=== PATIENT | female | born 1980 | race American Indian/Alaskan Native ===

== ENCOUNTER 2017-02-16 13:29 | Inpatient (IN) | payer MEDICAID, OTHER ==
[2017-02-16 14:38] LABS: Basophils % (Auto) 0.6 % (0.0-1.8); Eosinophils % (Auto) 0.7 % (0.0-4.3); Mean Corpuscular HGB Conc 28 % (30-34); Red Cell Distribution Width 19.8 % (13.2-15.2); White Blood Count 14.4 K/mm3 (4.5-11.0)
[2017-02-16 14:42] LABS: Hematocrit 24.6 % (30.3-42.9); Hemoglobin 6.9 gm/dl (10.1-14.3); Mean Corpuscular Hemoglobin 16 pg (28-32); Mean Corpuscular Volume 57 fl (79-97)
[2017-02-16 14:56] LABS: Anion Gap 15 mmol/L; Blood Urea Nitrogen 6 mg/dL (7-17); Carbon Dioxide 25 mmol/L (22-30); Chloride 97.4 mmol/L (98-107); Glucose 113 mg/dL (65-100); Potassium 3.7 mmol/L (3.6-5.0); Sodium 134 mmol/L (137-145)
[2017-02-16 16:44] LABS: Platelet Count 254 K/mm3 (140-440)
[2017-02-16] MEDS ORDERED: ALUM-MAG HYDROX-SIMETH 200-200-20MG/5ML PO ONE (21:37)
[2017-02-16] MEDS ORDERED: PEPCID IV ONE (21:37)
[2017-02-16] MEDS ORDERED: CARAFATE PO ONE (21:37)
[2017-02-16] MEDS ORDERED: NACL 0.9% 500 ML 500 ML IV ONE (21:37)
--- NOTE | 2017-02-16 21:38 | Emergency Department Report ---
ED General Adult HPI - General Chief complaint: Chest Pain Stated complaint: CHEST PAIN Time Seen by Provider: 02/16/17 21:14 Source: patient, RN notes reviewed, old records reviewed Mode of arrival: Ambulatory Limitations: No Limitations - History of Present Illness Initial comments: This is a 36-year-old female. She is previously unknown to me. Past medical history includes erosive gastritis, fibroids, anemia. She does not have a primary care doctor. LMP2 weeks ago. She indicates that she is not . Patient presents to the ER complaining of chest pain. The chest pain is central. It does not radiate to the back, arms or neck. It is intermittent for a week. There is no leg pain. There is no leg swelling. No recent trips greater than 4 hours. No recent hospital admissions. No cocaine use. No oral contraceptive use. No hematemesis. No bright red blood per rectum. Reports heavy menstruation. The puncture symptoms today are similar to prior episodes of symptomatic anemia. Patient was found to have symptomatically anemia in the ER, with a hemoglobin/ hematocrit of 6. 9/24. The patient indicates she is amenable to packed red blood cell transfusion. Medications was presented to the Hospital physician, Dr. Neal, who graciously accepted the patient to his service for treatment of symptomatic anemia. -: Gradual Location: chest Quality: aching Consistency: intermittent Improves with: rest Worsens with: movement Associated Symptoms: chest pain, shortness of breath - Related Data Home Medications Medication Instructions Recorded Confirmed Last Taken Ferrous Gluconate [Fergon 325 MG 325 mg PO QDAY 02/16/17 02/16/17 02/09/17 tab] One Daily Multivitamin Tablet 1 tab PO QDAY 02/16/17 02/16/17 02/13/17 Allergies Allergy/AdvReac Type Severity Reaction Status Date / Time No Known Allergies Allergy Unverified 07/11/15 17:26 ED Review of Systems ROS: Stated complaint: CHEST PAIN Other details as noted in HPI ED Past Medical Hx - Past Medical History Previous Medical History?: Yes Hx Congestive Heart Failure: No Hx Diabetes: No Hx Headaches / Migraines: Yes Hx Asthma: No Hx COPD: No Additional medical history: anemia, last bld transfusion 2015 - Surgical History Past Surgical History?: Yes Additional Surgical History: Bilateral tubal ligation - Social History Smoking Status: Current Every Day Smoker Substance Use Type: None - Medications Home Medications: Home Medications Medication Instructions Recorded Confirmed Last Taken Type Ferrous Gluconate [Fergon 325 MG 325 mg PO QDAY 02/16/17 02/16/17 02/09/17 History tab] One Daily Multivitamin Tablet 1 tab PO QDAY 02/16/17 02/16/17 02/13/17 History ED Physical Exam - General Limitations: No Limitations General appearance: alert, in no apparent distress - Head Head exam: Present: atraumatic, normocephalic - Eye Eye exam: Present: normal appearance, EOMI. Absent: nystagmus - ENT ENT exam: Present: normal exam, normal orophraynx, mucous membranes moist, normal external ear exam - Neck Neck exam: Present: normal inspection, full ROM. Absent: tenderness, meningismus - Respiratory Respiratory exam: Present: normal lung sounds bilaterally. Absent: respiratory distress, wheezes, rales, rhonchi, stridor, chest wall tenderness, accessory muscle use, decreased breath sounds, prolonged expiratory - Cardiovascular Cardiovascular Exam: Present: regular rate, normal rhythm, normal heart sounds. Absent: bradycardia, tachycardia, irregular rhythm, systolic murmur, diastolic murmur, rubs, gallop - GI/Abdominal GI/Abdominal exam: Present: soft, normal bowel sounds. Absent: distended, tenderness, guarding, rebound, rigid, pulsatile mass - Extremities Exam Extremities exam: Present: normal inspection, full ROM, normal capillary refill. Absent: tenderness, pedal edema, joint swelling, calf tenderness - Back Exam Back exam: Present: normal inspection, full ROM. Absent: tenderness, CVA tenderness (R), CVA tenderness (L), muscle spasm, paraspinal tenderness, vertebral tenderness - Neurological Exam Neurological exam: Present: alert, oriented X3, normal gait, other (Extraocular movements intact. Tongue midline. No facial droop. Facial sensation intact to light touch in the V1, V2, V3 distribution bilaterally. 5 and 5 strength in 4 extremities.. Sensation is intact to light touch in 4 extremities.). Absent : motor sensory deficit - Psychiatric Psychiatric exam: Present: normal affect, normal mood - Skin Skin exam: Present: warm, dry, intact, normal color. Absent: rash ED Course Vital Signs 02/16/17 02/16/17 02/16/17 13:49 21:03 21:05 Temperature 98.4 F Pulse Rate 94 H 95 H Respiratory 18 17 Rate Blood Pressure 121/64 119/77 O2 Sat by Pulse 100 100 99 Oximetry 02/16/17 02/16/17 02/16/17 21:11 21:15 21:21 Temperature Pulse Rate 93 H 94 H 94 H Respiratory 22 22 21 Rate Blood Pressure 119/77 138/70 138/70 O2 Sat by Pulse 100 100 100 Oximetry 02/16/17 02/16/17 02/16/17 21:25 21:30 21:41 Temperature Pulse Rate 92 H 90 95 H Respiratory 19 18 15 Rate Blood Pressure 138/70 138/70 138/70 O2 Sat by Pulse 100 100 100 Oximetry 02/16/17 02/16/17 21:45 21:53 Temperature Pulse Rate 92 H 91 H Respiratory 20 Rate Blood Pressure 131/86 O2 Sat by Pulse 100 Oximetry - Reevaluation(s) Reevaluation #1: 02/16/17 22:06 differential diagnosis: GERD, gastritis, reflux, symptomatic anemia, acute coronary syndrome, pneumonia Assessment and plan: 36-year-old female with well-documented history of symptomatic anemia, with probable symptomatically anemia and chest pain. Low risk by KATJA score, low risk by heart score, low risk by well's criteria, no pulmonary embolus or DVT risk factors, perc negative. The patient requires packed red blood cell transfusion. She will be treated empirically for GERD/reflux. ED Medical Decision Making - Lab Data Result diagrams: 02/16/17 14:06 02/16/17 14:06 Vital Signs 02/16/17 02/16/17 02/16/17 13:49 21:03 21:05 Temperature 98.4 F Pulse Rate 94 H 95 H Respiratory 18 17 Rate Blood Pressure 121/64 119/77 O2 Sat by Pulse 100 100 99 Oximetry 02/16/17 02/16/17 02/16/17 21:11 21:15 21:21 Temperature Pulse Rate 93 H 94 H 94 H Respiratory 22 22 21 Rate Blood Pressure 119/77 138/70 138/70 O2 Sat by Pulse 100 100 100 Oximetry 02/16/17 02/16/17 02/16/17 21:25 21:30 21:41 Temperature Pulse Rate 92 H 90 95 H Respiratory 19 18 15 Rate Blood Pressure 138/70 138/70 138/70 O2 Sat by Pulse 100 100 100 Oximetry 02/16/17 02/16/17 21:45 21:53 Temperature Pulse Rate 92 H 91 H Respiratory 20 Rate Blood Pressure 131/86 O2 Sat by Pulse 100 Oximetry Lab Results 02/16/17 02/16/17 02/16/17 Range/Units 14:06 14:06 16:42 WBC 14.4 H (4.5-11.0) K/mm3 RBC 4.30 (3.65-5.03) M/mm3 Hgb 6.9 L (10.1-14.3) gm/dl Hct 24.6 L (30.3-42.9) % MCV 57 L (79-97) fl MCH 16 L (28-32) pg MCHC 28 L (30-34) % RDW 19.8 H (13.2-15.2) % Plt Count 254 (140-440) K/mm3 Lymph % (Auto) 9.5 L (13.4-35.0) % [place] % (Auto) 8.6 H (0.0-7.3) % Eos % (Auto) 0.7 (0.0-4.3) % Baso % (Auto) 0.6 (0.0-1.8) % Lymph # 1.4 (1.2-5.4) K/mm3 [place] # 1.2 H (0.0-0.8) K/mm3 Eos # 0.1 (0.0-0.4) K/mm3 Baso # 0.1 (0.0-0.1) K/mm3 Seg Neutrophils % 80.6 H (40.0-70.0) % Seg Neutrophils # 11.6 H (1.8-7.7) K/mm3 Sodium 134 L (137-145) mmol/L Potassium 3.7 (3.6-5.0) mmol/L Chloride 97.4 L (98-107) mmol/L Carbon Dioxide 25 (22-30) mmol/L Anion Gap 15 mmol/L BUN 6 L (7-17) mg/dL Creatinine 0.6 L (0.7-1.2) mg/dL Estimated GFR > 60 ml/min BUN/Creatinine Ratio 10.00 % Glucose 113 H (65-100) mg/dL Calcium 9.0 (8.4-10.2) mg/dL Troponin T < 0.010 < 0.010 (0.00-0.029) ng/mL 02/16/17 Range/Units 19:53 WBC (4.5-11.0) K/mm3 RBC (3.65-5.03) M/mm3 Hgb (10.1-14.3) gm/dl Hct (30.3-42.9) % MCV (79-97) fl MCH (28-32) pg MCHC (30-34) % RDW (13.2-15.2) % Plt Count (140-440) K/mm3 Lymph % (Auto) (13.4-35.0) % [place] % (Auto) (0.0-7.3) % Eos % (Auto) (0.0-4.3) % Baso % (Auto) (0.0-1.8) % Lymph # (1.2-5.4) K/mm3 [place] # (0.0-0.8) K/mm3 Eos # (0.0-0.4) K/mm3 Baso # (0.0-0.1) K/mm3 Seg Neutrophils % (40.0-70.0) % Seg Neutrophils # (1.8-7.7) K/mm3 Sodium (137-145) mmol/L Potassium (3.6-5.0) mmol/L Chloride (98-107) mmol/L Carbon Dioxide (22-30) mmol/L Anion Gap mmol/L BUN (7-17) mg/dL Creatinine (0.7-1.2) mg/dL Estimated GFR ml/min BUN/Creatinine Ratio % Glucose (65-100) mg/dL Calcium (8.4-10.2) mg/dL Troponin T < 0.010 (0.00-0.029) ng/mL - EKG Data -: EKG Interpreted by [facility] EKG shows normal: sinus rhythm, axis, intervals, QRS complexes, ST-T waves Rate: normal - EKG Data When compared to previous EKG there are: no significant change - Radiology Data Radiology results: pending Critical Care Time: Yes Critical care time in (mins) excluding proc time.: 35 Critical care attestation.: If time is entered above; I have spent that time in minutes in the direct care of this critically ill patient, excluding procedure time. Critical Care Time: Critical care time includes multiple bedside evaluations, interpretation of laboratory studies, radiology studies, time spent managing a patient with symptomatic anemia, chest pain, shortness of breath, requiring packed red blood cell transfusion. This includes time spent discussing patient's care with consulting services, including hospital medicine. This does not include procedure time. ED Disposition Clinical Impression: Symptomatic anemia, Chest pain Disposition: OP ADMITTED IP TO THIS HOSP Is pt being admited?: Yes Condition: Good Instructions: Chest Pain (ED) Referrals: PRIMARY CARE,MD [Primary Care Provider] - 3-5 Days
[2017-02-17] MEDS ORDERED: TYLENOL PO PRN (00:17)
[2017-02-17] MEDS ORDERED: ZOFRAN IV PRN (00:17)
--- NOTE | 2017-02-17 00:24 | History and Physical Report ---
History of Present Illness Date of examination: 02/16/17 Date of admission: 02/16/17 22:08 Chief complaint: Chest pain History of present illness: Patient is 36-year-old woman with a history of iron deficiency anemia due to fibroids in the process of being evaluated by [facility] for hysterectomy. She also has a history of tobacco dependency and erosive gastritis/GERD from [employer] who presents with 2 weeks history of substernal dull to sharp mildly intense substernal worsening nonradiating chest pain that comes and goes lasting less than 5 minutes without any aggravating or relieving factors. Patient has been taking ibuprofen almost on a daily basis. Education done. Past History Past Medical History: other (as hpi) Past Surgical History: Other (tubal ligation) Social history: smoking (I advised to stop), full code. denies: alcohol abuse, prescription drug abuse, IV drug use Family history: diabetes (mother), hypertension (mother) Medications and Allergies Allergies Allergy/AdvReac Type Severity Reaction Status Date / Time No Known Allergies Allergy Unverified 07/11/15 17:26 Home Medications Medication Instructions Recorded Confirmed Last Taken Type Ferrous Gluconate [Fergon 325 MG 325 mg PO QDAY 02/16/17 02/16/17 02/09/17 History tab] One Daily Multivitamin Tablet 1 tab PO QDAY 02/16/17 02/16/17 02/13/17 History Active Meds: Active Medications Acetaminophen (Tylenol) 650 mg PO Q6H PRN PRN Reason: Non Cardiac Pain or Temp>100.5 Ferrous Gluconate (Fergon) 325 mg PO QDAY [place] Ondansetron HCl (Zofran) 4 mg IV Q4H PRN PRN Reason: Nausea And Vomiting Pantoprazole Sodium (Protonix) 40 mg PO QDAY [facility] Review of Systems All systems: negative (as HPI and all other ROS reviewed and negative.) Exam - Physical Exam Narrative exam: GEN: WDWN, NAD, AWAKE, ALERT, ORIENTATED3 HEENT: NCAT, PERRL, EOMI, OP CLEAR NECK: SUPPLE, NO THYROMEGALY, NO JVD, NO LAD CVS: RRR, NORMAL S1S2 LUNGS/CHEST: CTA B, NORMAL CHEST EXPANSION B, GOOD AIR ENTRY B ABD: SOFT NTND, GBS, NO REBOUND OR GUARDING EXT/SKIN: NO SIGNIFICANT EDEMA OR RASH MSK: FROM X 4 EXTREMITIES NEURO: CN 2-12 GROSSLY INTACT, NO FOCAL DEFICITS PSY: CALM - Constitutional Vitals: Temp Pulse Resp BP Pulse Ox 99.2 F 93 H 18 122/77 99 02/16/17 23:03 02/16/17 23:03 02/16/17 23:03 02/16/17 23:50 02/16/17 23:50 Results - Labs CBC & Chem 7: 02/16/17 14:06 02/16/17 14:06 - Imaging and Cardiology EKG: image reviewed Assessment and Plan Patient is 36-year-old woman with a history of iron deficiency anemia due to fibroids in the process of being evaluated by [facility] for hysterectomy. She also has a history of tobacco dependency and erosive gastritis/GERD from [employer] who presents with 2 weeks history of substernal dull to sharp mildly intense substernal worsening nonradiating chest pain that comes and goes lasting less than 5 minutes without any aggravating or relieving factors. Patient has been taking ibuprofen almost on a daily basis. Education done. -Chest pain was likely due to worsening anemia: risk stratification with stress test, Treat with PPI and advise against taking ibuprofen -Acute on chronic blood loss anemia requiring transfusion: Closely monitor H&H -GERD: Treat with PPI and education done -Tobacco dependency: Counseling to stop done -DVT prophylaxis: SCD only due to anemia -Sirs without source of infection so far, cxr pending.
[2017-02-17] MEDS ORDERED: NACL 0.9% 500 ML 500 ML IV ONE (00:37)
[2017-02-17 06:44] LABS: Hematocrit 26.7 % (30.3-42.9); Hemoglobin 8.2 gm/dl (10.1-14.3)
[2017-02-17] MEDS ORDERED: LEXISCAN IV ONE ×2 (07:47→07:59)
--- NOTE | 2017-02-17 09:21 | XRay Report ---
AP CHEST: HISTORY: chest pain AP view of the chest demonstrates a normal mediastinal and cardiac contour with clear lungs and normal bony and soft tissue structures. IMPRESSION: Unremarkable AP chest.
[2017-02-17] MEDS ORDERED: PROTONIX PO SCH (10:00)
[2017-02-17] MEDS ORDERED: FERGON PO SCH (10:00)
--- NOTE | 2017-02-17 10:47 | Discharge Summary ---
Providers - Providers Date of Admission: 02/16/17 22:08 Date of discharge: 02/17/17 Attending physician: LYDIA DELGADO Primary care physician: ANUSHA ROBLES MD Hospitalization Condition: Good Disposition: DISCHARGED TO HOME OR SELFCARE - Discharge Diagnoses (1) GERD without esophagitis Status: Acute (2) Chest pain Status: Acute Qualifiers: Chest pain type: C Ischemic chest pain type: I (3) Heavy periods Status: Chronic Qualifiers: Menorrahagia type: with regular cycle Qualified Code(s): N92.0 - Excessive and frequent menstruation with regular cycle Core Measure Documentation - Palliative Care Palliative Care/ Comfort Measures: Not Applicable Exam - Constitutional Vitals: Temp Pulse Resp BP Pulse Ox 98.2 F 78 16 106/53 98 02/17/17 08:28 02/17/17 08:28 02/17/17 08:28 02/17/17 08:28 02/17/17 08:28 Plan Activity: no restrictions Diet: low fat, low cholesterol Follow up with: PRIMARY CARE, [Primary Care Provider] - 3-5 Days Prescriptions: Famotidine [Pepcid] 20 mg PO BID #30 tablet
--- NOTE | 2017-02-17 11:05 | Event Note ---
Date: 02/17/17 Nuclear stress test completed. No complications. Stress test shows small inferior wall defect, likely secondary to diaphragmatic attenuation. No ischemia. Low risk for signficant coronary artery disease. EF 67%.
[2017-02-17 12:10] VITALS: BP 142/81
--- NOTE | 2017-02-19 03:52 | Treadmill Report ---
THALLIUM STRESS TEST LEFT VENTRICLE: Left ventricle is at the upper limits of normal in size. There is a small fixed apical defect, no reversibility on the rest of study. Gated analysis demonstrates normal left ventricular systolic function with ejection fraction 67%. CONCLUSION: Small fixed apical defect may be consistent with normal apical thinning. There is no reversible ischemia demonstrated on this study. Clinical correlation is recommended. JOB# [id number] BERT/NTS
== END 2017-02-17 14:08 | disposition home or self-care (01) | DRG 760 ==
LOC: ED 13:29 → 4A 22:08
PROVIDERS: ADMIT Internal Medicine; ATTEND Internal Medicine
PROC: 30233N1 Transfusion of Nonautologous Red Blood Cells into Peripheral Vein, Percutaneous Approach (ICD-10-PCS; principal; 2017-02-16)
DX: D25.9 Leiomyoma of uterus, unspecified (principal); D62 Acute posthemorrhagic anemia; K21.9 Gastro-esophageal reflux disease without esophagitis; N92.0 Excessive and frequent menstruation with regular cycle; F17.200 Nicotine dependence, unspecified, uncomplicated; G43.909 Migraine, unspecified, not intractable, without status migrainosus; Z98.51 Tubal ligation status; Z83.3 Family history of diabetes mellitus; Z82.49 Family history of ischemic heart disease and other diseases of the circulatory system; Z71.6 Tobacco abuse counseling
CPT/HCPCS: 36415; 71010; 78452; 80048; 84484; 84702; 85014; 85018; 85025; 86850; 86900; 86901; 86920; 93005; 93010; 93017; 96374; A9502; J2785; J7040; P9016

== ENCOUNTER 2020-05-12 20:19 | Emergency (ER) | payer BC, MEDICAID ==
[2020-05-13] MEDS ORDERED: ACETAMINOPHEN 500 MG TAB PO ONE (00:53)
[2020-05-13] MEDS ORDERED: FAMOTIDINE 20 MG TAB PO ONE (00:54)
[2020-05-13] MEDS ORDERED: FAMOTIDINE 20 MG TAB ONE (00:55)
[2020-05-13] MEDS ORDERED: ACETAMINOPHEN 500 MG TAB ONE (00:55)
[2020-05-13 00:56] VITALS: BP 147/80
--- NOTE | 2020-05-13 01:04 | Emergency Department Report ---
ED General Adult HPI - General Chief complaint: Skin Rash Stated complaint: RASH Source: patient Mode of arrival: Ambulatory Limitations: No Limitations - History of Present Illness Initial comments: Patient is a 39-year-old -[place] female with no past medical history presents to the ED with complaint of acute onset persistent intermittent diffuse itchy erythematous maculopapular dry scaly rashes for the last 1 week. Patient states that she has been applying calamine lotion with no relief. Patient states that the rash is now spread all over her body and not getting worse. Patient states that she has not been able to sleep because of persistent itching due to the rashes. Patient denies swollen lips or tongue, dysphagia, dysphonia, nausea, vomiting, diarrhea, abdominal pain, headache, dizziness, syncope, fever, chills or insect bite, or exposure to a new detergent, new food, new fabric or medications. MD Complaint: itchy irritation and rashes -: Sudden, week(s) (1) Location: chest, back, abdomen, buttocks, upper extremity, lower extremity Radiation: non-radiation Severity scale (0 -10): 7 Quality: burning, aching, constant, other (Itching) Consistency: constant Improves with: none Worsens with: none Associated Symptoms: denies other symptoms, rash (Diffuse itchy erythematous maculopapular rashes). denies: confusion, chest pain, cough, diaphoresis, fever/chills, headaches, malaise, nausea/vomiting, seizure, shortness of breath, syncope, weakness, other Treatments Prior to Arrival: none - Related Data Home Medications Medication Instructions Recorded Confirmed Last Taken Ferrous Gluconate [Fergon 325 MG 325 mg PO QDAY 02/16/17 02/16/17 02/09/17 tab] One Daily Multivitamin Tablet 1 tab PO QDAY 02/16/17 02/16/17 02/13/17 Previous Rx's Medication Instructions Recorded Last Taken Type Famotidine [Pepcid] 20 mg PO BID #30 tablet 02/17/17 Unknown Rx Ferrous Sulfate [Feosol 325 MG tab] 325 mg PO BID #60 tablet 09/20/18 Unknown Rx Polyethylene Glycol 3350 [Miralax] 17 gm PO QDAY #119 gram 09/20/18 Unknown Rx Griseofulvin, Microsize 500 mg PO DAILY #30 tablet 05/13/20 Unknown Rx [Griseofulvin] diphenhydrAMINE [Benadryl CAP] 25 mg PO Q6HR PRN #60 capsule 05/13/20 Unknown Rx Allergies Allergy/AdvReac Type Severity Reaction Status Date / Time No Known Allergies Allergy Unverified 07/11/15 17:26 ED Review of Systems ROS: Stated complaint: RASH Other details as noted in HPI Constitutional: denies: chills, fever Eyes: denies: eye pain, eye discharge, vision change ENT: denies: ear pain, throat pain Respiratory: denies: cough, shortness of breath, wheezing Cardiovascular: denies: chest pain, palpitations Endocrine: no symptoms reported Gastrointestinal: denies: abdominal pain, nausea, diarrhea Genitourinary: denies: urgency, dysuria, discharge Musculoskeletal: denies: back pain, joint swelling, arthralgia Skin: rash, pruritus, other (Diffuse itchy erythematous maculopapular rashes). denies: lesions Neurological: denies: headache, weakness, paresthesias Psychiatric: denies: anxiety, depression Hematological/Lymphatic: denies: easy bleeding, easy bruising ED Past Medical Hx - Past Medical History Previous Medical History?: Yes Hx Congestive Heart Failure: No Hx Diabetes: No Hx Headaches / Migraines: Yes Hx Asthma: No Hx COPD: No Additional medical history: anemia, last bld transfusion 2015 - Surgical History Additional Surgical History: Bilateral tubal ligation - Social History Smoking Status: Current Every Day Smoker Substance Use Type: Alcohol, Marijuana - Medications Home Medications: Home Medications Medication Instructions Recorded Confirmed Last Taken Type Ferrous Gluconate [Fergon 325 MG 325 mg PO QDAY 02/16/17 02/16/17 02/09/17 History tab] One Daily Multivitamin Tablet 1 tab PO QDAY 02/16/17 02/16/17 02/13/17 History Famotidine [Pepcid] 20 mg PO BID #30 tablet 02/17/17 Unknown Rx Ferrous Sulfate [Feosol 325 MG tab] 325 mg PO BID #60 tablet 09/20/18 Unknown Rx Polyethylene Glycol 3350 [Miralax] 17 gm PO QDAY #119 gram 09/20/18 Unknown Rx Griseofulvin, Microsize 500 mg PO DAILY #30 tablet 05/13/20 Unknown Rx [Griseofulvin] diphenhydrAMINE [Benadryl CAP] 25 mg PO Q6HR PRN #60 capsule 05/13/20 Unknown Rx ED Physical Exam - General Limitations: No Limitations General appearance: alert, in no apparent distress - Head Head exam: Present: atraumatic, normocephalic, normal inspection - Eye Eye exam: Present: normal appearance, PERRL, EOMI Pupils: Present: normal accommodation - ENT ENT exam: Present: normal exam, normal orophraynx, mucous membranes moist, TM's normal bilaterally, normal external ear exam - Neck Neck exam: Present: normal inspection, full ROM - Respiratory Respiratory exam: Present: normal lung sounds bilaterally. Absent: respiratory distress, wheezes, rales, rhonchi, chest wall tenderness, accessory muscle use - Cardiovascular Cardiovascular Exam: Present: regular rate, normal rhythm, normal heart sounds. Absent: systolic murmur, diastolic murmur, rubs, gallop - GI/Abdominal GI/Abdominal exam: Present: soft, normal bowel sounds. Absent: tenderness, guarding, rebound, hyperactive bowel sounds, hypoactive bowel sounds, organomegaly - Extremities Exam Extremities exam: Present: normal inspection, full ROM, normal capillary refill - Back Exam Back exam: Present: normal inspection, full ROM. Absent: tenderness, CVA tenderness (R), CVA tenderness (L), muscle spasm, paraspinal tenderness, vertebral tenderness - Neurological Exam Neurological exam: Present: alert, oriented X3, CN II-XII intact, normal gait, reflexes normal - Psychiatric Psychiatric exam: Present: normal affect, normal mood - Skin Skin exam: Present: warm, dry, intact, normal color, rash (Diffuse erythematous maculopapular dry scaly rashes), erythema ED Medical Decision Making - Medical Decision Making This is a 39-year-old -[place] female with no past medical history presents to the ED with complaint of acute onset persistent intermittent diffuse itchy erythematous maculopapular dry scaly rashes for the last 1 week. Patient states that she has been applying calamine lotion with no relief. Patient states that the rash is now spread all over her body and not getting worse. Patient states that she has not been able to sleep because of persistent itching due to the rashes. In the ED, patient is alert and oriented x3 and is not in distress. Patient was treated in the ED for itching with Pepcid since she was driving and could not give her antihistamines. Patient symptoms and physical exam findings are consistent with tinea corporis. Patient was discharged home on medications and advised to follow-up with her primary care physician in 7 to 10 days for reevaluation or return to the ED immediately if symptoms get worse. - Differential Diagnosis Allergic reaction; Itching; Tinea corporis; dermatitis Critical care attestation.: If time is entered above; I have spent that time in minutes in the direct care of this critically ill patient, excluding procedure time. ED Disposition Clinical Impression: Itching with irritation, Tinea corporis Disposition: TO HOME OR SELFCARE Is pt being admited?: No Does the pt Need Aspirin: No Condition: Stable Instructions: Tinea Corporis (ED), Itchy Skin (ED) Additional Instructions: Take medication with food, drink plenty of fluids and follow-up with your primary care physician in 5 to 7 days for reevaluation. Return to the ED immediately if symptoms get worse. No alcohol consumption advised when taking these medications. Prescriptions: diphenhydrAMINE [Benadryl CAP] 25 mg PO Q6HR PRN #60 capsule PRN Reason: Itching Griseofulvin, Microsize [Griseofulvin] 500 mg PO DAILY #30 tablet Referrals: [facility] [Provider Group] - 7-10 days Time of Disposition: 00:57 Print Language: CROATIAN
== END 2020-05-13 01:20 | disposition home or self-care (01) ==
LOC: ED 20:19
DX: B35.4 Tinea corporis (principal); L29.9 Pruritus, unspecified; G43.909 Migraine, unspecified, not intractable, without status migrainosus; F17.200 Nicotine dependence, unspecified, uncomplicated; F12.10 Cannabis abuse, uncomplicated; Z98.51 Tubal ligation status; Z79.899 Other long term (current) drug therapy
CPT/HCPCS: 99282

== ENCOUNTER 2022-03-17 11:08 | Emergency (ER) | payer SELFPAY ==
[2022-03-17 11:35] VITALS: BP 144/80
--- NOTE | 2022-03-17 14:51 | Emergency Department Report ---
- General Chief Complaint: Headache Stated Complaint: LIGHT HEADED/CO/DIZZY Source: patient Mode of arrival: Ambulatory Limitations: No Limitations - History of Present Illness Initial Comments: 41-year-old female presents to the ED with complaint of headache, dizziness stuffy nose x3 weeks. Patient states that when she bends forward she gets dizzy. She states that she noticed that this a.m. when she was at work. States that she knows that she has to cough to clear her throat. Patient states that she feels worse in the a.m. She states that headache is worse on the right side. Patient denies any chest pain shortness of breath fever or chills at present time. Patient denies any prior medication. Patient is alert and oriented x3. No acute distress noted. No ill appearance noted. MD Complaint: sore throat, nasal congestion, sinus pain - Related Data Home Medications Medication Instructions Recorded Confirmed Last Taken Ferrous Gluconate [Fergon 325 MG 325 mg PO QDAY 02/16/17 02/16/17 02/09/17 tab] One Daily Multivitamin Tablet 1 tab PO QDAY 02/16/17 02/16/17 02/13/17 Previous Rx's Medication Instructions Recorded Last Taken Type Famotidine [Pepcid] 20 mg PO BID #30 tablet 02/17/17 Unknown Rx Ferrous Sulfate [Feosol 325 MG tab] 325 mg PO BID #60 tablet 09/20/18 Unknown Rx Polyethylene Glycol 3350 [Miralax] 17 gm PO QDAY #119 gram 09/20/18 Unknown Rx Griseofulvin, Microsize 500 mg PO DAILY #30 tablet 05/13/20 Unknown Rx [Griseofulvin] diphenhydrAMINE [Benadryl CAP] 25 mg PO Q6HR PRN #60 capsule 05/13/20 Unknown Rx Amoxicillin/K Clav Tab [Augmentin 1 tab PO Q12HR 10 Days #20 tab 03/17/22 Unknown Rx 875 mg] Cetirizine HCl/Pseudoephedrine 1 each PO BID 15 Days #30 tab 03/17/22 Unknown Rx [Zyrtec-D Tablet] predniSONE [Deltasone] 50 mg PO QDAY 5 Days #5 tab 03/17/22 Unknown Rx Allergies Allergy/AdvReac Type Severity Reaction Status Date / Time No Known Allergies Allergy Unverified 07/11/15 17:26 ED Review of Systems ROS: Stated complaint: LIGHT HEADED/CO/DIZZY Other details as noted in HPI Constitutional: denies: chills, fever Eyes: denies: eye pain, eye discharge, vision change ENT: throat pain, congestion. denies: ear pain Respiratory: denies: cough, shortness of breath, wheezing Cardiovascular: denies: chest pain, palpitations Endocrine: no symptoms reported Gastrointestinal: denies: abdominal pain, nausea, diarrhea Genitourinary: denies: urgency, dysuria, discharge Musculoskeletal: denies: back pain, joint swelling, arthralgia Skin: denies: rash, lesions Neurological: headache. denies: weakness, paresthesias Psychiatric: denies: anxiety, depression Hematological/Lymphatic: denies: easy bleeding, easy bruising ED Past Medical Hx - Past Medical History Hx Congestive Heart Failure: No Hx Diabetes: No Hx Headaches / Migraines: Yes Hx Asthma: No Hx COPD: No Additional medical history: anemia, last bld transfusion 2015 - Surgical History Additional Surgical History: Bilateral tubal ligation - Social History Smoking Status: Current Every Day Smoker Substance Use Type: Alcohol, Marijuana - Medications Home Medications: Home Medications Medication Instructions Recorded Confirmed Last Taken Type Ferrous Gluconate [Fergon 325 MG 325 mg PO QDAY 02/16/17 02/16/17 02/09/17 History tab] One Daily Multivitamin Tablet 1 tab PO QDAY 02/16/17 02/16/17 02/13/17 History Famotidine [Pepcid] 20 mg PO BID #30 tablet 02/17/17 Unknown Rx Ferrous Sulfate [Feosol 325 MG tab] 325 mg PO BID #60 tablet 09/20/18 Unknown Rx Polyethylene Glycol 3350 [Miralax] 17 gm PO QDAY #119 gram 09/20/18 Unknown Rx Griseofulvin, Microsize 500 mg PO DAILY #30 tablet 05/13/20 Unknown Rx [Griseofulvin] diphenhydrAMINE [Benadryl CAP] 25 mg PO Q6HR PRN #60 capsule 05/13/20 Unknown Rx Amoxicillin/K Clav Tab [Augmentin 1 tab PO Q12HR 10 Days #20 tab 03/17/22 Unknown Rx 875 mg] Cetirizine HCl/Pseudoephedrine 1 each PO BID 15 Days #30 tab 03/17/22 Unknown Rx [Zyrtec-D Tablet] predniSONE [Deltasone] 50 mg PO QDAY 5 Days #5 tab 03/17/22 Unknown Rx ED Physical Exam - General Limitations: No Limitations General appearance: alert, in no apparent distress - Head Head exam: Present: atraumatic, normocephalic - Eye Eye exam: Present: normal appearance - ENT ENT exam: Present: mucous membranes moist - Expanded ENT Exam Expanded TM/Canal exam: Cerumen Impaction: Right TM, Mastoid Tenderness: Right TM, Left TM (frontal ) Mouth exam: Present: other (Postnasal drip) - Neck Neck exam: Present: normal inspection - Respiratory Respiratory exam: Present: normal lung sounds bilaterally. Absent: respiratory distress - Cardiovascular Cardiovascular Exam: Present: regular rate, normal rhythm. Absent: systolic murmur, diastolic murmur, rubs, gallop - GI/Abdominal GI/Abdominal exam: Present: soft, normal bowel sounds - Extremities Exam Extremities exam: Present: normal inspection - Back Exam Back exam: Present: normal inspection - Neurological Exam Neurological exam: Present: alert, oriented X3 - Psychiatric Psychiatric exam: Present: normal affect, normal mood - Skin Skin exam: Present: warm, dry, intact, normal color. Absent: rash ED Course Vital Signs 03/17/22 11:34 Temperature 98.4 F Pulse Rate 84 Respiratory 16 Rate Blood Pressure 144/80 [Left] O2 Sat by Pulse 97 Oximetry ED Medical Decision Making - Medical Decision Making 41-year-old female presents to the ED with complaint of headache, dizziness stuffy nose x3 weeks. Patient states that when she bends forward she gets dizzy. She states that she noticed that this a.m. when she was at work. States that she knows that she has to cough to clear her throat. Patient states that she feels worse in the a.m. She states that headache is worse on the right side. Patient denies any chest pain shortness of breath fever or chills at present time. Patient denies any prior medication. Patient is alert and oriented x3. No acute distress noted. No ill appearance noted. Physical examination patient has right cerumen impaction. Nasal turbinates swollen. Postnasal drip noted. Rechecked the patient is resting quietly quietly and comfortable and feeling better. I discussed the results of diagnostic study, my clinical impression and the plan for further treatment with the patient. Patient agrees with plan and discharge at this present time. All question addressed. I have given the patient instruction regarding a diagnosis ,expectation ,follow- up and return precaution. I explained to the patient that emergent condition may arise and to return to the ED for new worsen and any new persisting condition. I have explained the importance of following up with the primary care physician or referral physician listed below has instructed. The patient verbalized understanding of discharge instruction. Critical care attestation.: If time is entered above; I have spent that time in minutes in the direct care of this critically ill patient, excluding procedure time. ED Disposition Clinical Impression: Impacted cerumen, right ear Acute frontal sinusitis Qualifiers: Recurrence: non-recurrent Qualified Code(s): J01.10 - Acute frontal sinusitis, unspecified Disposition: 01 HOME / SELF CARE / HOMELESS Is pt being admited?: No Does the pt Need Aspirin: No Condition: Stable Instructions: Sinusitis, Adult, [id number], Earwax Buildup, Adult Additional Instructions: Use Debrox eardrops for in the right ear Follow-up with [facility] [address] [place] [address] [id number] [place], [place] [address] Prescriptions: Amoxicillin/K Clav Tab [Augmentin 875 mg] 1 tab PO Q12HR 10 Days #20 tab predniSONE [Deltasone] 50 mg PO QDAY 5 Days #5 tab Cetirizine HCl/Pseudoephedrine [Zyrtec-D Tablet] 1 each PO BID 15 Days #30 tab Referrals: JEREL PA MD [Staff Physician] - 3-5 Days Forms: Work/School Release Form(ED) Time of Disposition: 14:56
== END 2022-03-17 15:15 | disposition home or self-care (01) ==
LOC: ED 11:08
DX: H61.21 Impacted cerumen, right ear (principal); J01.10 Acute frontal sinusitis, unspecified
CPT/HCPCS: 99282